=== PATIENT | male | born 1995 | race Caucasian/White ===

== ENCOUNTER 2020-05-12 20:51 | Emergency (ER) | payer BC ==
[2020-05-12 21:03] VITALS: BP 121/77; PULSE 88; RESP 18; TEMP 98.2
[2020-05-12] MEDS ORDERED: KETOROLAC 30 MG/ML 1 ML VIAL IM STA (22:07)
--- NOTE | 2020-05-12 22:10 | ED ---
General Adult HPI - General Chief complaint: Back Pain/Injury Stated complaint: Back Pain Time Seen by Provider: 05/12/20 21:52 Source: patient, family, RN notes reviewed - History of Present Illness Initial comments: 24-year-old male presents to the emergency room for a chief complaint of left mid back pain. Patient states that he has had this for about a week now. Patient states on the day it started he had gone from riding in a car for an hour to golfing. 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 Patient states movement worsens the pain. He states he chi ropractor who told him that he may have compression on a disc in his thoracic spine after he had an x-ray. Patient denies any bladder bowel changes, numbness or tingling of the lower extremities, weakness of the lower extremities, or fevers.Patient has no other complaints at this time including shortness of breath, chest pain, abdominal pain, nausea or vomiting, headache, or visual changes. - Related Data Previous Rx's Medication Instructions Recorded Acetaminophen [Tylenol] 500 mg PO Q6HR PRN #20 tab 05/12/20 Cyclobenzaprine [Flexeril] 10 mg PO TID #14 tab 05/12/20 Ibuprofen [Motrin] 600 mg PO Q6HR PRN #20 tab 05/12/20 Allergies Allergy/AdvReac Type Severity Reaction Status Date / Time No Known Allergies Allergy Verified 05/12/20 21:02 Review of Systems ROS Statement: Those systems with pertinent positive or pertinent negative responses have been documented in the HPI. ROS Other: All systems not noted in ROS Statement are negative. Past Medical History Past Medical History: No Reported History History of Any Multi-Drug Resistant Organisms: None Reported Past Surgical History: No Surgical Hx Reported Past Psychological History: No Psychological Hx Reported Smoking Status: Never smoker Past Alcohol Use History: Occasional Past Drug Use History: None Reported General Exam General appearance: alert, in no apparent distress Head exam: Present: atraumatic, normocephalic, normal inspection Eye exam: Present: normal appearance, PERRL, EOMI. Absent: scleral icterus, conjunctival injection, periorbital swelling ENT exam: Present: normal exam, mucous membranes moist Neck exam: Present: normal inspection, full ROM. Absent: tenderness, meningismus, lymphadenopathy Respiratory exam: Present: normal lung sounds bilaterally. Absent: respiratory distress, wheezes, rales, rhonchi, stridor Cardiovascular Exam: Present: regular rate, normal rhythm, normal heart sounds. Absent: systolic murmur, diastolic murmur, rubs, gallop, clicks GI/Abdominal exam: Present: soft, normal bowel sounds. Absent: distended, tenderness, guarding, rebound, rigid Back exam: Present: paraspinal tenderness (Patient has left-sided thoracic paraspinal tenderness. No vertebral tenderness.) Neurological exam: Present: alert Course Vital Signs 05/12/20 20:59 Temperature 98.2 F Pulse Rate 88 Respiratory 18 Rate Blood Pressure 121/77 O2 Sat by Pulse 100 Oximetry Medical Decision Making - Medical Decision Making HPI and physical exam as documented. Patient was given IM Toradol. He will be sent home with pain medication and a work note. He was given follow-up to Dr. Hobson. If he has any worsening symptoms he'll return to the emergency room. Disposition Clinical Impression: Mechanical back pain Disposition: HOME SELF-CARE Condition: Good Instructions (If sedation given, give patient instructions): Thoracic Back Strain (ED) Additional Instructions: Please take Motrin and Tylenol for pain. You may alternate these every 6 hours. Follow-up with orthopedics in one to 2 days. Return to the emergency room for any worsening symptoms. Prescriptions: Cyclobenzaprine [Flexeril] 10 mg PO TID #14 tab Ibuprofen [Motrin] 600 mg PO Q6HR PRN #20 tab PRN Reason: Pain Acetaminophen [Tylenol] 500 mg PO Q6HR PRN #20 tab PRN Reason: Pain Is patient prescribed a controlled substance at d/c from ED?: No Referrals: Junaita Hobson DO [Doctor of Osteopathic Medicine] - 1-2 days Time of Disposition: 22:07
[2020-05-12] MEDS ORDERED: ACET/COD 300 MG/30 MG STARTER PACK 6 TAB BTL PO STA (22:55)
== END 2020-05-12 23:00 | disposition home or self-care (01) ==
LOC: EC 20:51
DX: M54.9 Dorsalgia, unspecified (principal)
CPT/HCPCS: 99283; 96372; J1885